=== PATIENT | male | born 1945 | race Caucasian/White ===

== ENCOUNTER 2017-01-13 06:38 | Day surgery (SDC) | payer MEDICARE, OTHER ==
[~2017-01-13 06:38] MED LIST: Sodium Chloride 0.9% 10 ML Syringe FLUSH PRN; Sodium Chloride 0.9% 2.5 ML Syringe FLUSH PRN
[2017-01-13] MEDS ORDERED: Lactated Ringers 1,000 ML IV SCH (07:00)
--- NOTE | 2017-01-13 07:20 | PCM.PREANE ---
Preanesthetic Assessment - Anesthesia/Transfusion/Family Hx Anesthesia History: Prior Anesthesia Without Reaction Other Type of Anesthesia Reaction Comment: DENIES ANY PROBLEMS WITH ANESTHESIA Family History of Anesthesia Reaction: No Transfusion History: No Prior Transfusion(s) - Review of Systems General: No Symptoms Pulmonary: No Symptoms Cardiovascular: No Symptoms Gastrointestinal: No Symptoms Neurological: No Symptoms Other: Reports: None - Physical Assessment NPO Status Date: 01/12/17 O2 Sat by Pulse Oximetry: 97 Respiratory Rate: 16 Vital Signs: Last Vital Signs Temp 36.3 C 01/13/17 06:42 Pulse 62 01/13/17 06:42 Resp 16 01/13/17 06:42 BP 119/62 01/13/17 06:42 Pulse Ox 97 01/13/17 06:42 Height: 1.88 m Weight: 122.47 kg ASA Class: 2 Mental Status: Alert & Oriented x3 Airway Class: Mallampati = 1 Dentition: Reports: Normal Dentition Lungs: Clear to Auscultation, Normal Respiratory Effort Cardiovascular: Regular Rate, Regular Rhythm - Allergies Allergies/Adverse Reactions: Allergies Allergy/AdvReac Type Severity Reaction Status Date / Time No Known Allergies Allergy Verified 07/19/13 08:51 - Anesthesia Plan Pre-Op Medication Ordered: None - Acknowledgements Anesthesia Type Planned: General Anesthesia Pt an Appropriate Candidate for the Planned Anesthesia: Yes Alternatives and Risks of Anesthesia Discussed w Pt/Guardian: Yes Pt/Guardian Understands and Agrees with Anesthesia Plan: Yes Additional Comments: pmh: parox a fib, now in nsr, on dig and cardizem, dm2, hld, gerd. Pt states Shahin is going after stone in lower pole of kidney. Will plan GET. PreAnesthesia Questionnaire HEENT History: Reports: Hard of Hearing, Impaired Vision, Other (See Below) Other HEENT History: wears glasses, barrett hearing aids Cardiovascular History: Reports: Arrhythmia, High Cholesterol Respiratory History: Reports: Sleep Apnea Other Respiratory History: uses CPAP Gastrointestinal History: Reports: GERD Genitourinary History: Reports: Prostate Disorder, Renal Calculus Musculoskeletal History: Reports: Back Pain, Chronic, Fracture Other Musculoskeletal History: hx fx rib and finger Endocrine/Metabolic History: Reports: Diabetes, Type II, Obesity/BMI 30+ Dermatologic History: Reports: Psoriasis - Past Surgical History Head Surgeries/Procedures: Reports: None Male Surgical History: Reports: Lithotripsy (ESWL), TURP-Transurethral Resection of Prostate, Vasectomy Endocrine Surgical History: Reports: Parathyroidectomy - SUBSTANCE USE Smoking Status *Q: Former Smoker Second Hand Smoke Exposure: No Days Per Week of Alcohol Use: 0 Recreational Drug Use History: No - HOME MEDS Home Medications: Home Meds Simvastatin [Zocor] 40 mg PO BEDTIME 07/31/13 [History] Digoxin [Lanoxin] 125 mcg PO DAILY #30 tablet 08/03/13 [Rx] Diltiazem [Cardizem CD] 240 mg PO DAILY 01/10/17 [History] Esomeprazole Magnesium [Nexium] 1 tab PO ASDIRECTED 01/10/17 [History] Glimepiride [Amaryl] 2 mg PO BID 01/10/17 [History] Tamsulosin HCl [Flomax] 0.4 mg PO BEDTIME 01/10/17 [History] metFORMIN HCl [Metformin HCl ER] 500 mg PO DAILY 01/10/17 [History] - CURRENT (IN HOUSE) MEDS Current Meds: Current Medications Lactated Ringer's (Ringers, Lactated) 1,000 mls @ 100 mls/hr IV ASDIRECTED EHSAN Last Admin: 01/13/17 06:49 Dose: 100 mls/hr Sodium Chloride (Saline Flush) 10 ml FLUSH ASDIRECTED PRN PRN Reason: Keep Vein Open Sodium Chloride (Saline Flush) 2.5 ml FLUSH ASDIRECTED PRN PRN Reason: Keep Vein Open
[2017-01-13] MEDS ORDERED: Lidocaine 2% 5 ML SDV ONE (07:36)
[2017-01-13] MEDS ORDERED: Propofol 200 MG/20 ML SDV ONE (07:36)
[2017-01-13] MEDS ORDERED: Iopamidol 408 MG/ML 50 ML SDV ONE (07:36)
[2017-01-13] MEDS ORDERED: fentaNYL 100 MCG/2 ML SDV ONE (07:36)
[2017-01-13] MEDS ORDERED: Midazolam 1 MG/ML 2 ML SDV ONE (07:36)
[2017-01-13] MEDS ORDERED: Rocuronium 10 MG/ML 10 ML Syringe ONE (07:41)
[2017-01-13] MEDS ORDERED: Neostigmine Methylsulfate 1 MG/ML 5 ML Syringe ONE (07:41)
[2017-01-13] MEDS ORDERED: ePHEDrine 50 MG/ML SDV ONE (08:51)
--- NOTE | 2017-01-13 10:01 | OR ---
SURGEON: Matthieu Greer M.D. DATE OF PROCEDURE: 01/13/2017 PREOPERATIVE DIAGNOSIS: Right renal pelvis stone. POSTOPERATIVE DIAGNOSIS: Right renal pelvis stone. OPERATION: ESWL. DESCRIPTION OF OPERATION: The patient was placed on the lithotripsy table. The position of the patient was adjusted, so the stone could be treated, which is now in two parts. The larger one is in the renal pelvis and the smaller one which is about 7 or 8 mm is in the right upper ureter. The ureteral stone was treated and eventually received 2500 shocks. At the end, the stone was fragmented completely and the shadow of the stone essentially disappeared. With that done, the procedure was terminated and the patient after inserting a Baez catheter in his bladder, was moved to recovery room. The patient tolerated the procedure well. PLAN: He will have the other stone treated, the larger one, which is about 1 cm, next time. JOELLE / DOMINIQUE /[id number]
--- NOTE | 2017-01-13 10:07 | PCM.POSTAN ---
POST ANESTHESIA ASSESSMENT - MENTAL STATUS Mental Status: Alert, Oriented - RESPIRATORY Respiratory Status: Respiratory Rate WNL, Airway Patent, O2 Saturation Stable - CARDIOVASCULAR CV Status: Pulse Rate WNL, Blood Pressure Stable - GASTROINTESTINAL GI Status: No Symptoms - PAIN Pain Score: 0 - POST OP HYDRATION Hydration Status: Adequate & Stable
[2017-01-13 11:42] VITALS: BP 114/70
== END 2017-01-13 11:43 | disposition home or self-care (01) ==
LOC: MW.SDS 06:38
PROVIDERS: ATTEND Urology
DX: N20.2 Calculus of kidney with calculus of ureter (principal); E11.9 Type 2 diabetes mellitus without complications; E78.00 Pure hypercholesterolemia, unspecified; K21.9 Gastro-esophageal reflux disease without esophagitis; G47.30 Sleep apnea, unspecified; Z87.442 Personal history of urinary calculi; Z87.891 Personal history of nicotine dependence; Z79.84 Long term (current) use of oral hypoglycemic drugs; Z79.899 Other long term (current) drug therapy; Z98.52 Vasectomy status; Z90.89 Acquired absence of other organs; Z98.890 Other specified postprocedural states; Z99.89 Dependence on other enabling machines and devices
CPT/HCPCS: 50590; J2250; J3010; J7120; 00873; J2704; Q9966

== ENCOUNTER 2017-01-27 07:42 | Day surgery (SDC) | payer MEDICARE, OTHER ==
[~2017-01-27 07:42] MED LIST changes: +Lactated Ringers 1,000 ML IV SCH; +ceFAZolin 2 GM in Premix Bag 1 BAG IV ONE
[2017-01-27] MEDS ORDERED: Succinylcholine/Normal Saline 200 MG/10 ML Syringe ONE (08:29)
[2017-01-27] MEDS ORDERED: Rocuronium 10 MG/ML 10 ML Syringe ONE (08:29)
[2017-01-27] MEDS ORDERED: Lidocaine 2% 5 ML SDV ONE (08:29)
[2017-01-27] MEDS ORDERED: Ondansetron 4 MG/2 ML SDV ONE (08:29)
[2017-01-27] MEDS ORDERED: Midazolam 1 MG/ML 2 ML SDV ONE (08:30)
[2017-01-27] MEDS ORDERED: Propofol 200 MG/20 ML SDV ONE (08:30)
[2017-01-27] MEDS ORDERED: fentaNYL 250 MCG/5 ML SDV ONE (08:30)
--- NOTE | 2017-01-27 08:53 | PCM.PREANE ---
Preanesthetic Assessment - Procedure Proposed Procedure: ESWL - Anesthesia/Transfusion/Family Hx Anesthesia History: Prior Anesthesia Without Reaction Other Type of Anesthesia Reaction Comment: DENIES ANY PROBLEMS WITH ANESTHESIA Family History of Anesthesia Reaction: No Transfusion History: No Prior Transfusion(s) Intubation History: Unknown - Review of Systems General: No Symptoms Pulmonary: No Symptoms Cardiovascular: Other (Arrhythmia - on cardiazem;hypercholesterolemic) Gastrointestinal: Other (GERD) Neurological: Other (Slow bladder emptying) Other: Reports: Diabetes (II; usu fbs 160 range) - Physical Assessment NPO Status Date: 01/27/17 NPO Status Time: 06:00 (took AM meds) Height: 5 ft 7 in Weight: 268 lb ASA Class: 3 Mental Status: Alert & Oriented x3 Airway Class: Mallampati = 1 Dentition: Reports: Normal Dentition Thyro-Mental Finger Breadths: 3 Mouth Opening Finger Breadths: 3 ROM/Head Extension: Full Lungs: Clear to Auscultation, Normal Respiratory Effort Cardiovascular: Regular Rate, Regular Rhythm, No Murmurs - Allergies Allergies/Adverse Reactions: Allergies Allergy/AdvReac Type Severity Reaction Status Date / Time No Known Allergies Allergy Verified 01/25/17 12:25 - Blood Blood Available: No Product(s) Available: None - Anesthesia Plan Pre-Op Medication Ordered: None - Acknowledgements Anesthesia Type Planned: General Anesthesia (OETT) Pt an Appropriate Candidate for the Planned Anesthesia: Yes Alternatives and Risks of Anesthesia Discussed w Pt/Guardian: Yes Pt/Guardian Understands and Agrees with Anesthesia Plan: Yes PreAnesthesia Questionnaire HEENT History: Reports: Hard of Hearing, Impaired Vision, Other (See Below) Other HEENT History: wears glasses, barrett hearing aids Cardiovascular History: Reports: Arrhythmia, High Cholesterol Respiratory History: Reports: Sleep Apnea Other Respiratory History: uses CPAP Gastrointestinal History: Reports: GERD Genitourinary History: Reports: Prostate Disorder, Renal Calculus Musculoskeletal History: Reports: Back Pain, Chronic, Fracture Other Musculoskeletal History: hx fx rib and finger Endocrine/Metabolic History: Reports: Diabetes, Type II, Obesity/BMI 30+ Dermatologic History: Reports: Psoriasis - Past Surgical History Head Surgeries/Procedures: Reports: None Male Surgical History: Reports: Lithotripsy (ESWL), TURP-Transurethral Resection of Prostate, Vasectomy Endocrine Surgical History: Reports: Parathyroidectomy - SUBSTANCE USE Smoking Status *Q: Former Smoker Second Hand Smoke Exposure: No Days Per Week of Alcohol Use: 0 Recreational Drug Use History: No - HOME MEDS Home Medications: Home Meds Simvastatin [Zocor] 40 mg PO BEDTIME 07/31/13 [History] Digoxin [Lanoxin] 125 mcg PO DAILY #30 tablet 08/03/13 [Rx] Diltiazem [Cardizem CD] 240 mg PO DAILY 01/10/17 [History] Esomeprazole Magnesium [Nexium] 1 tab PO ASDIRECTED 01/10/17 [History] Glimepiride [Amaryl] 2 mg PO BID 01/10/17 [History] Tamsulosin HCl [Flomax] 0.4 mg PO BEDTIME 01/10/17 [History] metFORMIN HCl [Metformin HCl ER] 500 mg PO DAILY 01/10/17 [History] - CURRENT (IN HOUSE) MEDS Current Meds: Current Medications Lactated Ringer's (Ringers, Lactated) 1,000 mls @ 100 mls/hr IV ASDIRECTED EHSAN Last Admin: 01/27/17 07:55 Dose: 100 mls/hr Sodium Chloride (Saline Flush) 10 ml FLUSH ASDIRECTED PRN PRN Reason: Keep Vein Open Sodium Chloride (Saline Flush) 2.5 ml FLUSH ASDIRECTED PRN PRN Reason: Keep Vein Open Discontinued Medications Fentanyl (Sublimaze) Confirm Administered Dose 250 mcg .ROUTE .STK-MED ONE Stop: 01/27/17 08:31 Cefazolin Sodium/Dextrose 2 gm (/ Premix) 50 mls @ 100 mls/hr IV ONCALL ONE Stop: 01/27/17 07:29 Lidocaine (Xylocaine-Mpf 2%) Confirm Administered Dose 5 ml .ROUTE .STK-MED ONE Stop: 01/27/17 08:30 Midazolam HCl (Versed 1 Mg/Ml) Confirm Administered Dose 2 mg .ROUTE .STK-MED ONE Stop: 01/27/17 08:31 Ondansetron HCl (Zofran) Confirm Administered Dose 4 mg .ROUTE .STK-MED ONE Stop: 01/27/17 08:30 Propofol (Diprivan 20 Ml) Confirm Administered Dose 200 mg .ROUTE .STK-MED ONE Stop: 01/27/17 08:31 Rocuronium [place] (Zemuron) Confirm Administered Dose 100 mg .ROUTE .STK-MED ONE Stop: 01/27/17 08:30 Succinylcholine Chloride (Succinylcholine In Ns Pf) Confirm Administered Dose 200 mg .ROUTE .STK-MED ONE Stop: 01/27/17 08:30
[2017-01-27] MEDS ORDERED: Iopamidol 408 MG/ML 50 ML SDV ONE (10:09)
--- NOTE | 2017-01-27 12:07 | OR ---
SURGEON: Matthieu Greer M.D. DATE OF PROCEDURE: 01/27/2017 PREOPERATIVE DIAGNOSIS: Right renal pelvis stone residual. POSTOPERATIVE DIAGNOSIS: Right renal pelvis stone residual. OPERATION: Extracorporeal shock wave lithotripsy. DESCRIPTION OF OPERATION: The patient was given general anesthesia on the lithotripsy table. Position of the patient was adjusted, so the stone could be treated and eventually received a total of 3000 shocks. The stone was slightly over 1 cm in greatest dimension. At the end of the treatment, the urine coming from the right kidney is bloody. A 6-Sami 26 cm double-J stent was placed in the right renal unit. Position was confirmed by fluoroscopy. The bladder was emptied. The patient was sent to the recovery room in good condition. PLAN: He comes to the office in four weeks. I will take the double-J stent out then and follow the patient clinically. JOELLE / DOMINIQUE /[id number]
--- NOTE | 2017-01-27 13:02 | PCM48HPAN ---
Post Anesthesia Note - EVALUATION WITHIN 48HRS OF ANESTHETIC Vital Signs in Normal Range: Yes Patient Participated in Evaluation: Yes Respiratory Function Stable: Yes Airway Patent: Yes Cardiovascular Function Stable: Yes Hydration Status Stable: Yes Pain Control Satisfactory: Yes Nausea and Vomiting Control Satisfactory: Yes Mental Status Recovered: Yes - COMMENTS/OBSERVATIONS Free Text/Narrative:: Baez drainage OK but c/o cath too long was raised.
[2017-01-27 14:11] VITALS: BP 96/65
== END 2017-01-27 13:35 | disposition home or self-care (01) ==
LOC: MW.SDS 07:42
PROVIDERS: ATTEND Urology
DX: N20.0 Calculus of kidney (principal); E11.9 Type 2 diabetes mellitus without complications; E78.00 Pure hypercholesterolemia, unspecified; G47.30 Sleep apnea, unspecified; K21.9 Gastro-esophageal reflux disease without esophagitis; N42.9 Disorder of prostate, unspecified; E66.9 Obesity, unspecified; Z87.442 Personal history of urinary calculi; Z87.891 Personal history of nicotine dependence; Z79.84 Long term (current) use of oral hypoglycemic drugs; Z79.899 Other long term (current) drug therapy; Z68.35 Body mass index [BMI] 35.0-35.9, adult; Z99.89 Dependence on other enabling machines and devices; Z90.79 Acquired absence of other genital organ(s); Z90.89 Acquired absence of other organs; Z98.890 Other specified postprocedural states
CPT/HCPCS: 50590; 52332; J2250; J2405; J3010; J7120; 00873; 88300; C1769; C2625; J2704; Q9966

== ENCOUNTER 2017-03-04 11:57 | Inpatient (IN) | payer MEDICARE, OTHER ==
[2017-03-04] MEDS ORDERED: Sodium Chloride 0.9% 10 ML Syringe FLUSH PRN (12:35)
[2017-03-04] MEDS ORDERED: Sodium Chloride 0.9% 2.5 ML Syringe FLUSH PRN (12:35)
[2017-03-04] MEDS: Lactated Ringers 1,000 ML IV SCH ×2 (13:03→17:11)
--- NOTE | 2017-03-04 13:10 | PCM.PREANE ---
Preanesthetic Assessment - Anesthesia/Transfusion/Family Hx Anesthesia History: Prior Anesthesia Without Reaction Other Type of Anesthesia Reaction Comment: DENIES ANY PROBLEMS WITH ANESTHESIA Family History of Anesthesia Reaction: No Transfusion History: No Prior Transfusion(s) Intubation History: Unknown - Review of Systems General: Fever, Weakness, Fatigue, Malaise, Chills Gastrointestinal: Abdominal Pain Other: Reports: Easy Bleeding (lovenox sc this am) - Physical Assessment NPO Status Date: 03/04/17 NPO Status Time: 09:30 O2 Sat by Pulse Oximetry: 99 Respiratory Rate: 20 Blood Pressure: 107/59 Vital Signs: Last Vital Signs Temp 36.2 C 03/04/17 12:21 Pulse 79 03/04/17 12:21 Resp 20 03/04/17 12:21 BP 107/59 L 03/04/17 12:21 Pulse Ox 99 03/04/17 12:21 Height: 1.88 m Weight: 115.8 kg ASA Class: 4E Mental Status: Alert & Oriented x3 Airway Class: Mallampati = 2 Dentition: Reports: Normal Dentition ROM/Head Extension: Full Lungs: Clear to Auscultation, Normal Respiratory Effort Cardiovascular: Regular Rate, Regular Rhythm - Allergies Allergies/Adverse Reactions: Allergies Allergy/AdvReac Type Severity Reaction Status Date / Time No Known Allergies Allergy Verified 03/04/17 12:26 - Acknowledgements Anesthesia Type Planned: General Anesthesia Pt an Appropriate Candidate for the Planned Anesthesia: Yes Alternatives and Risks of Anesthesia Discussed w Pt/Guardian: Yes Pt/Guardian Understands and Agrees with Anesthesia Plan: Yes Additional Comments: transfer from outside hosp. Inpt since last night. transfered for obstructing L ureteral stone and UTI / pyelonephritis / sepsis. Arrives diaphoretic with chills. Hepllocked iv, has had 1 dose prcephrin. last oral doses of digitalis and cardizem were at 818 this am. WBC 12,500 at outside hospital K=3.9 Ate breakfast at 0930. No H&P on chart. PLAN: pre op iv hydration and antibiotics. To OR for cysto stent placement under [place] (RSI) PreAnesthesia Questionnaire HEENT History: Reports: Hard of Hearing, Impaired Vision, Other (See Below) Other HEENT History: wears glasses, barrett hearing aids Cardiovascular History: Reports: Arrhythmia, High Cholesterol Respiratory History: Reports: Sleep Apnea Other Respiratory History: uses CPAP Gastrointestinal History: Reports: GERD Genitourinary History: Reports: Prostate Disorder, Renal Calculus Musculoskeletal History: Reports: Back Pain, Chronic, Fracture Other Musculoskeletal History: hx fx rib and finger Endocrine/Metabolic History: Reports: Diabetes, Type II, Obesity/BMI 30+ Dermatologic History: Reports: Psoriasis - Infectious Disease History Infectious Disease History: Reports: Measles - Past Surgical History Head Surgeries/Procedures: Reports: None Male Surgical History: Reports: Lithotripsy (ESWL), TURP-Transurethral Resection of Prostate, Vasectomy Endocrine Surgical History: Reports: Parathyroidectomy - SUBSTANCE USE Smoking Status *Q: Never Smoker Second Hand Smoke Exposure: No Days Per Week of Alcohol Use: 0 Recreational Drug Use History: No - HOME MEDS Home Medications: Home Meds Simvastatin [Zocor] 40 mg PO BEDTIME 07/31/13 [History] Digoxin [Lanoxin] 125 mcg PO DAILY #30 tablet 08/03/13 [Rx] Diltiazem [Cardizem CD] 240 mg PO DAILY 01/10/17 [History] Esomeprazole Magnesium [Nexium] 1 tab PO ASDIRECTED 01/10/17 [History] Glimepiride [Amaryl] 2 mg PO BID 01/10/17 [History] Tamsulosin HCl [Flomax] 0.4 mg PO BEDTIME 01/10/17 [History] metFORMIN HCl [Metformin HCl ER] 500 mg PO DAILY 01/10/17 [History] Furosemide [Lasix] 20 mg PO DAILY #10 tablet 01/27/17 [Rx] - CURRENT (IN HOUSE) MEDS Current Meds: Current Medications Tobramycin 120 mg/ Sodium (Chloride) 103 mls @ 103 mls/hr IV NOW STA Stop: 03/04/17 13:41 Last Admin: 03/04/17 13:03 Dose: 103 mls/hr Lactated Ringer's (Ringers, Lactated) 1,000 mls @ 150 mls/hr IV ASD[facility]RECTED [facility] Last Admin: 03/04/17 13:03 Dose: 150 mls/hr Sodium Chloride (Saline Flush) 10 ml FLUSH ASDIRECTED PRN PRN Reason: Keep Vein Open Sodium Chloride (Saline Flush) 2.5 ml FLUSH ASDIRECTED PRN PRN Reason: Keep Vein Open
[2017-03-04] MEDS ORDERED: Midazolam 1 MG/ML 2 ML SDV ONE (13:25)
[2017-03-04] MEDS ORDERED: Propofol 200 MG/20 ML SDV ONE (13:25)
[2017-03-04] MEDS ORDERED: fentaNYL 100 MCG/2 ML SDV ONE (13:25)
[2017-03-04] MEDS ORDERED: Lidocaine 2% 5 ML SDV ONE (13:27)
[2017-03-04] MEDS ORDERED: Succinylcholine/Normal Saline 200 MG/10 ML Syringe ONE (13:27)
[2017-03-04] MEDS ORDERED: Ondansetron 4 MG/2 ML SDV ONE (13:27)
[2017-03-04] MEDS ORDERED: diphenhydrAMINE 50 MG/ML SDV ONE (13:27)
[2017-03-04] MEDS ORDERED: ePHEDrine 50 MG/ML SDV ONE (13:49)
[2017-03-04] MEDS ORDERED: D5 1/2 NS w/ 20 mEq/L KCl 1,000 ML IV SCH (14:30)
--- NOTE | 2017-03-04 14:58 | PCM.POSTAN ---
POST ANESTHESIA ASSESSMENT - MENTAL STATUS Mental Status: Alert, Oriented - VITAL SIGNS Pulse Rate: 67 SaO2: 95 Resp Rate: 20 Blood Pressure: 109/52 - RESPIRATORY Respiratory Status: Respiratory Rate WNL, Airway Patent, O2 Saturation Stable ( sore throat) - CARDIOVASCULAR CV Status: Pulse Rate WNL, Blood Pressure Stable - GASTROINTESTINAL GI Status: No Symptoms - PAIN Pain Score: 0 - POST OP HYDRATION Hydration Status: Adequate & Stable
[2017-03-04] MEDS ORDERED: FLU Vacc QS 2017-18 (36mos UP)/PF 60 MCG/0.5 ML Syringe IM ONE (15:45)
--- NOTE | 2017-03-04 15:52 | CR ---
EXAMINATION: Ureteroscopy HISTORY: Stent placement COMPARISON: None TECHNIQUE: 2 fluoroscopic images provided FINDINGS/IMPRESSION: Operative control films demonstrate selection of the left ureter with subsequent stent placement.
[2017-03-04] MEDS: Ampicillin 2 GM in Sodium Chloride 0.9% 100 ML IV SCH ×2 (16:00→20:22)
--- NOTE | 2017-03-04 18:03 | OR ---
SURGEON: Matthieu Greer M.D. DATE OF PROCEDURE: 03/04/2017 PREOPERATIVE DIAGNOSES: 1. Obstructive left upper ureteral stone, 8 mm. 2. Urinary tract infection with positive culture. POSTOPERATIVE DIAGNOSES: 1. Obstructive left upper ureteral stone, 8 mm. 2. Urinary tract infection with positive culture. PROCEDURE: Cystoscopy and double-J stent placement. DESCRIPTION OF PROCEDURE: The patient was given general anesthesia, placed in dorsal lithotomy position, and prepped and draped in a sterile drapes. Cystourethroscopy was done. The existing double-J stent on the right side which has been there for approximately one month status post ESWL on the right side was now removed. A Glidewire was advanced in the left ureter alongside the stone all the way up into the renal pelvis, over which a 6-Bulgarian 26 cm double-J stent was placed. The stent retracted into the lower ureter when the guidewire was removed. There was good hydronephrotic drip coming out of that ureter. With that done, the bladder was emptied and the patient was moved to recovery room in good condition. PLAN: He will be admitted for the next 2 days for IV antibiotics. We will then have to set up ESWL treatment for him. PRIMARY SURGEON: SECONDARY SURGEON: MUSEUM LIBRARIAN: REASON MUSEUM LIBRARIAN WAS NECESSARY: ROLE OF MUSEUM LIBRARIAN: JOELLE / DOMINIQUE /[id number]
[2017-03-04] MEDS: Acetaminophen 325 MG Tab PO PRN (21:22)
--- NOTE | 2017-03-04 22:15 | CONS ---
DATE OF CONSULTATION: DATE OF : 1945 PRIMARY CARE PHYSICIAN: Matthieu Greer M.D. HISTORY OF PRESENT ILLNESS: A 71 years old, I received a call about him from the [facility]. He apparently has been to the emergency room 3 or 4 times over the last 30 days with recurrent left flank pain. He was also found to have a UTI with positive culture that grew Morganella. He had a CT scan done today that showed an 8 mm left upper ureteral stone with obstruction. PHYSICAL EXAMINATION: VITAL SIGNS: On arrival, he is afebrile even though his temperature there during the last 24 hours reached up to 102. His vital signs are normal. GENERAL: He is alert and oriented. HEART: Normal sinus rhythm. LUNGS: Clear. ABDOMEN: Negative. EXTERNAL GENITALIA: Normal. DIAGNOSES: Urinary tract infection, left upper ureteral obstructive stone 8 mm. PLAN: Left cystoscopy and left double-J stent placement plus IV antibiotics. JOELLE / DOMINIQUE /[id number]
[2017-03-05] MEDS: Lactated Ringers 1,000 ML IV SCH ×3 (01:05→19:23)
[2017-03-05] MEDS: Ampicillin 2 GM in Sodium Chloride 0.9% 100 ML IV SCH ×4 (03:14→21:03)
[2017-03-05 06:31] LABS: CHLORIDE,CL 104 mmol/L (98-110); SODIUM,NA 130 mmol/L (136-146)
[2017-03-05] MEDS: metFORMIN 500 MG Tab.ER PO SCH (12:10)
[2017-03-05] MEDS: Acetaminophen 325 MG Tab PO PRN ×2 (12:10→19:25)
[2017-03-05] MEDS: Fluconazole 100 MG Tab PO SCH (12:10)
[2017-03-05] MEDS: Docusate Sodium 100 MG Cap PO SCH (12:10)
[2017-03-05] MEDS ORDERED: Docusate Sodium 100 MG Cap PO PRN (21:00)
[2017-03-05] MEDS ORDERED: Insulin Aspart 100 Units/ML 3 ML Pen SUBCUT SCH (21:00)
[2017-03-05] MEDS ORDERED: Docusate Sodium 100 MG Cap PO SCH (21:00)
[2017-03-05] MEDS: Insulin Aspart 100 Units/ML 3 ML Pen SUBCUT SCH (21:05)
[2017-03-06] MEDS: Ampicillin 2 GM in Sodium Chloride 0.9% 100 ML IV SCH ×4 (03:02→21:24)
[2017-03-06] MEDS: Acetaminophen 325 MG Tab PO PRN (03:58)
[2017-03-06] MEDS: Lactated Ringers 1,000 ML IV SCH ×2 (04:26→10:52)
[2017-03-06] MEDS: Insulin Aspart 100 Units/ML 3 ML Pen SUBCUT SCH ×4 (08:34→21:05)
[2017-03-06] MEDS: Docusate Sodium 100 MG Cap PO SCH ×2 (09:28→21:05)
[2017-03-06] MEDS: metFORMIN 500 MG Tab.ER PO SCH (09:28)
[2017-03-06] MEDS: Fluconazole 100 MG Tab PO SCH (09:28)
--- NOTE | 2017-03-06 10:49 | PCM48HPAN ---
Post Anesthesia Note - EVALUATION WITHIN 48HRS OF ANESTHETIC Vital Signs in Normal Range: Yes Patient Participated in Evaluation: Yes Respiratory Function Stable: Yes Airway Patent: Yes Cardiovascular Function Stable: Yes Hydration Status Stable: Yes Pain Control Satisfactory: Yes Nausea and Vomiting Control Satisfactory: Yes Mental Status Recovered: Yes
--- NOTE | 2017-03-06 11:54 | PCM.SURGPN ---
- General Info Date of Service: 03/06/17 Date of Surgery/Procedure: 03/04/17 Functional Status: Reports: Pain Controlled - Review of Systems General: Reports: Night Sweats HEENT: Reports: No Symptoms Pulmonary: Reports: No Symptoms Cardiovascular: Reports: No Symptoms Gastrointestinal: Reports: No Symptoms Genitourinary: Reports: No Symptoms Musculoskeletal: Reports: No Symptoms Skin: Reports: No Symptoms Neurological: Reports: No Symptoms Psychiatric: Reports: No Symptoms - Patient Data Vitals - Most Recent: Last Vital Signs Temp 97.7 F 03/06/17 08:22 Pulse 65 03/06/17 08:22 Resp 20 03/06/17 08:22 BP 122/76 03/06/17 08:22 Pulse Ox 97 03/06/17 08:22 Weight - Most Recent: 255 lb 4.725 oz I&O - Last 24 Hours: Intake & Output 03/05/17 03/06/17 03/06/17 19:59 03:59 11:59 Intake Total 3704 1574 100 Output Total 1765 Balance 1939 1574 100 Lab Results Last 24 Hrs: Laboratory Results - last 24 hr 03/05/17 03/05/17 03/05/17 Range/Units 13:48 15:57 20:49 POC Glucose 248 H 232 H 188 H (60-110) mg/dL 03/06/17 03/06/17 Range/Units 06:08 11:07 POC Glucose 196 H 226 H (60-110) mg/dL Med Orders - Current: Current Medications Acetaminophen (Tylenol) 650 mg PO Q2H PRN PRN Reason: Fever Last Admin: 03/06/17 03:58 Dose: 650 mg Docusate Sodium (Colace) 100 mg PO BID [facility] Last Admin: 03/06/17 09:28 Dose: 100 mg Fluconazole (Diflucan) 100 mg PO DAILY [facility] Last Admin: 03/06/17 09:28 Dose: 100 mg Ampicillin Sodium 2 gm/ Sodium (Chloride) 100 mls @ 200 mls/hr IV Q6H [facility] Last Admin: 03/06/17 09:24 Dose: 200 mls/hr Tobramycin 120 mg/ Sodium (Chloride) 103 mls @ 103 mls/hr IV Q12H [facility] Last Admin: 03/06/17 00:42 Dose: 103 mls/hr Insulin Aspart (Novolog) 0 unit SUBCUT ACBED [facility] PRN Reason: Protocol Last Admin: 03/06/17 08:34 Dose: 2 units Metformin HCl (Glucophage Xr) 500 mg PO DAILY [facility] Last Admin: 03/06/17 09:28 Dose: 500 mg Sodium Chloride (Saline Flush) 10 ml FLUSH ASDIRECTED PRN PRN Reason: Keep Vein Open Sodium Chloride (Saline Flush) 2.5 ml FLUSH ASDIRECTED PRN PRN Reason: Keep Vein Open Discontinued Medications Diphenhydramine HCl (Benadryl) Confirm Administered Dose 50 mg .ROUTE .STK-MED ONE Stop: 03/04/17 13:28 Docusate Sodium (Colace) 100 mg PO BID PRN PRN Reason: Constipation Docusate Sodium (Colace) 100 mg PO BID [facility] Ephedrine Sulfate (Ephedrine Sulfate) Confirm Administered Dose 50 mg .ROUTE .STK-MED ONE Stop: 03/04/17 13:50 Fentanyl (Sublimaze) Confirm Administered Dose 100 mcg .ROUTE .STK-MED ONE Stop: 03/04/17 13:26 Tobramycin 120 mg/ Sodium (Chloride) 103 mls @ 103 mls/hr IV NOW STA Stop: 03/04/17 13:41 Last Admin: 03/04/17 13:03 Dose: 103 mls/hr Lactated Ringer's (Ringers, Lactated) 1,000 mls @ 150 mls/hr IV ASDIRECTED [facility] Last Admin: 03/06/17 10:52 Dose: 150 mls/hr Potassium Chloride/Dextrose/Sod Cl (D5 1/2 Ns W/ 20 Meq/L Kcl) 1,000 mls @ 150 mls/hr IV ASDIRECTED [facility] Last Admin: 03/04/17 15:35 Dose: 150 mls/hr Tobramycin 120 mg/ Sodium (Chloride) 103 mls @ 103 mls/hr IV Q12H [facility] Last Admin: 03/04/17 16:34 Dose: Not Given Influenza Virus Vaccine (Pharmacy To Dose - Influenza Vaccine) 1 each IM ONETIME ONE Stop: 03/04/17 15:31 Last Admin: 03/04/17 18:59 Dose: Not Given Influenza Virus Vaccine (Fluarix Quad [id number]) 60 mcg IM .ONCE ONE Stop: 03/04/17 15:46 Last Admin: 03/04/17 18:54 Dose: 60 mcg Lidocaine (Xylocaine-Mpf 2%) Confirm Administered Dose 5 ml .ROUTE .STK-MED ONE Stop: 03/04/17 13:28 Midazolam HCl (Versed 1 Mg/Ml) Confirm Administered Dose 2 mg .ROUTE .STK-MED ONE Stop: 03/04/17 13:26 Ondansetron HCl (Zofran) Confirm Administered Dose 4 mg .ROUTE .STK-MED ONE Stop: 03/04/17 13:28 Propofol (Diprivan 20 Ml) Confirm Administered Dose 200 mg .ROUTE .STK-MED ONE Stop: 03/04/17 13:26 Succinylcholine Chloride (Succinylcholine In Ns Pf) Confirm Administered Dose 200 mg .ROUTE .STK-MED ONE Stop: 03/04/17 13:28 - Exam General: Alert, Oriented HEENT: Pupils Equal, Pupils Reactive Neck: Supple Lungs: Clear to Auscultation Cardiovascular: Regular Rate GI/Abdominal Exam: Normal Bowel Sounds Extremities: Normal Inspection Skin: Warm, Dry, Intact Neurological: No New Focal Deficit Psy/Mental Status: Alert - Problem List & Annotations (1) UTI (urinary tract infection) SNOMED Code(s): 14021215 Code(s): N39.0 - URINARY TRACT INFECTION, SITE NOT SPECIFIED Status: Acute Qualifiers: Urinary tract infection type: acute pyelonephritis Qualified Code(s): N10 - Acute pyelonephritis - Problem List Review Problem List Initiated/Reviewed/Updated: Yes - My Orders Last 24 Hours: Active Orders 24 hr Category Date Time Status Docusate Sodium [Colace] Med 03/05/17 12:02 Active 100 mg PO BID Fluconazole [Diflucan] Med 03/05/17 11:45 Active 100 mg PO DAILY Insulin Aspart [NovoLOG] Med 03/05/17 21:00 Active See Protocol SUBCUT ACBED metFORMIN [Glucophage XR] Med 03/05/17 11:45 Active 500 mg PO DAILY Medication Orders Acetaminophen (Tylenol) 650 mg PO Q2H PRN PRN Reason: Fever Last Admin: 03/06/17 03:58 Dose: 650 mg Admin: 03/05/17 19:25 Dose: 650 mg Admin: 03/05/17 12:10 Dose: 650 mg Admin: 03/04/17 21:22 Dose: 650 mg Docusate Sodium (Colace) 100 mg PO BID [facility] Last Admin: 03/06/17 09:28 Dose: 100 mg Admin: 03/05/17 12:10 Dose: 100 mg Fluconazole (Diflucan) 100 mg PO DAILY [facility] Last Admin: 03/06/17 09:28 Dose: 100 mg Admin: 03/05/17 12:10 Dose: 100 mg Ampicillin Sodium 2 gm/ Sodium (Chloride) 100 mls @ 200 mls/hr IV Q6H [facility] Last Admin: 03/06/17 09:24 Dose: 200 mls/hr Infusion: 03/06/17 03:32 Dose: 200 mls/hr Admin: 03/06/17 03:02 Dose: 200 mls/hr Infusion: 03/05/17 21:33 Dose: 200 mls/hr Admin: 03/05/17 21:03 Dose: 200 mls/hr Infusion: 03/05/17 14:41 Dose: 200 mls/hr Admin: 03/05/17 14:11 Dose: 200 mls/hr Infusion: 03/05/17 10:12 Dose: 200 mls/hr Admin: 03/05/17 09:42 Dose: 200 mls/hr Infusion: 03/05/17 03:44 Dose: 200 mls/hr Admin: 03/05/17 03:14 Dose: 200 mls/hr Infusion: 03/04/17 20:52 Dose: 200 mls/hr Admin: 03/04/17 20:22 Dose: 200 mls/hr Infusion: 03/04/17 16:30 Dose: 200 mls/hr Admin: 03/04/17 16:00 Dose: 200 mls/hr Tobramycin 120 mg/ Sodium (Chloride) 103 mls @ 103 mls/hr IV Q12H [facility] Last Admin: 03/06/17 00:42 Dose: 103 mls/hr Infusion: 03/05/17 13:13 Dose: 103 mls/hr Admin: 03/05/17 12:13 Dose: 103 mls/hr Infusion: 03/05/17 02:02 Dose: 103 mls/hr Admin: 03/05/17 01:02 Dose: 103 mls/hr Insulin Aspart (Novolog) 0 unit SUBCUT ACBED [facility] PRN Reason: Protocol Last Admin: 03/06/17 08:34 Dose: 2 units Admin: 03/05/17 21:05 Dose: 2 units Metformin HCl (Glucophage Xr) 500 mg PO DAILY [facility] Last Admin: 03/06/17 09:28 Dose: 500 mg Admin: 03/05/17 12:10 Dose: 500 mg Sodium Chloride (Saline Flush) 10 ml FLUSH ASDIRECTED PRN PRN Reason: Keep Vein Open Sodium Chloride (Saline Flush) 2.5 ml FLUSH ASDIRECTED PRN PRN Reason: Keep Vein Open - Plan Plan (Free Text/Narrative):: one more day of IV antibiotics U/C today
[2017-03-07] MEDS: Ampicillin 2 GM in Sodium Chloride 0.9% 100 ML IV SCH ×2 (02:23→08:48)
[2017-03-07] MEDS: Acetaminophen 325 MG Tab PO PRN (07:11)
[2017-03-07] MEDS: Insulin Aspart 100 Units/ML 3 ML Pen SUBCUT SCH ×4 (07:34→21:37)
[2017-03-07] MEDS: Docusate Sodium 100 MG Cap PO SCH ×2 (08:47→21:36)
[2017-03-07] MEDS: Fluconazole 100 MG Tab PO SCH (08:47)
[2017-03-07] MEDS: metFORMIN 500 MG Tab.ER PO SCH (08:47)
[2017-03-07] MEDS ORDERED: AMIKACIN 1000 MG/4 ML IV SCH (10:15)
[2017-03-08] MEDS: Insulin Aspart 100 Units/ML 3 ML Pen SUBCUT SCH ×2 (08:11→12:22)
[2017-03-08] MEDS: Acetaminophen 325 MG Tab PO PRN ×2 (08:15→11:02)
[2017-03-08] MEDS: Docusate Sodium 100 MG Cap PO SCH (08:15)
[2017-03-08] MEDS: Fluconazole 100 MG Tab PO SCH (08:16)
[2017-03-08] MEDS: metFORMIN 500 MG Tab.ER PO SCH (08:16)
[2017-03-08 12:53] VITALS: BP 115/76
--- NOTE | 2017-03-09 02:33 | DISCH ---
DATE OF DISCHARGE: 03/08/2017 PRIMARY CARE PHYSICIAN: Matthieu Greer M.D. HOSPITAL COURSE: 71 years old. He was admitted to the hospital four days ago. He presented to the emergency room with about a month history of flank pain, was treated elsewhere, and also UTI. He had a CT scan that showed an 8 mm left previous stone with obstruction. He was almost septic. He was admitted to the hospital and was started on a combination of ampicillin and tobramycin and was taken to the operating room about an hour after arrival to the hospital where I did a cystoscopy and put a double-J stent in. He remained on IV antibiotics. His temperature subsided two days later. He remained afebrile following that. He is feeling much better at four days and he is sent home on Macrobid 100 mg twice a day for the next 5 days. He is scheduled for ESWL this coming , day after tomorrow. JOELLE / DOMINIQUE /[id number]
== END 2017-03-08 15:10 | disposition home or self-care (01) | DRG 694 ==
LOC: MW.ED 11:57 → MW.MS 12:57 → OBSVTOIN 03-07 10:14 → MW.MS 03-07 15:54
PROVIDERS: ADMIT Urology; ATTEND Urology
PROC: 0T778DZ Dilation of Left Ureter with Intraluminal Device, Via Natural or Artificial Opening Endoscopic (ICD-10-PCS; principal; 2017-03-04)
PROC: 0TP97DZ Removal of Intraluminal Device from Ureter, Via Natural or Artificial Opening (ICD-10-PCS; 2017-03-04)
PROC: 0T768DZ Dilation of Right Ureter with Intraluminal Device, Via Natural or Artificial Opening Endoscopic (ICD-10-PCS; 2017-03-04)
PROC: 3E0234Z Introduction of Serum, Toxoid and Vaccine into Muscle, Percutaneous Approach (ICD-10-PCS; 2017-03-08)
DX: N20.2 Calculus of kidney with calculus of ureter (principal); R10.9 Unspecified abdominal pain; N20.1 Calculus of ureter; N39.0 Urinary tract infection, site not specified; B96.89 Other specified bacterial agents as the cause of diseases classified elsewhere; E11.9 Type 2 diabetes mellitus without complications; I49.9 Cardiac arrhythmia, unspecified; G47.33 Obstructive sleep apnea (adult) (pediatric); K21.9 Gastro-esophageal reflux disease without esophagitis; E78.5 Hyperlipidemia, unspecified; Z23 Encounter for immunization
CPT/HCPCS: 36415 ×2; 52332; 76000; 80048; 82962 ×11; 85025 ×2; 87086; 96365; 99284; A9270 ×15; C1769 ×2; C2625; G0008; J0290 ×12; J1200; J1815; J2250; J2405; J3010; J3260 ×6; J3480; J7030 ×18; J7120 ×7; 00910; 90686; J0278; J0713; J2704; J7060

== ENCOUNTER 2017-03-10 10:48 | Day surgery (SDC) | payer MEDICARE, OTHER ==
[~2017-03-10 10:48] MED LIST changes: +Iopamidol 408 MG/ML 50 ML SDV ONE
--- NOTE | 2017-03-10 11:45 | PCM.PREANE ---
Preanesthetic Assessment - Procedure Proposed Procedure: ESWL - Anesthesia/Transfusion/Family Hx Anesthesia History: Prior Anesthesia Without Reaction Other Type of Anesthesia Reaction Comment: DENIES ANY PROBLEMS WITH ANESTHESIA Family History of Anesthesia Reaction: No Transfusion History: No Prior Transfusion(s) Intubation History: Unknown - Review of Systems General: Other (pain due to renal stone) Pulmonary: Other (sleep apnea) Cardiovascular: Other (a fib - controlled; hypercholesterolemic; on digoxin and diltiazam) Gastrointestinal: Other (GERD) Neurological: No Symptoms Other: Reports: Diabetes (on metformin and gliburide) - Physical Assessment NPO Status Date: 03/09/17 NPO Status Time: 23:00 Height: 6 ft 2 in Weight: 250 lb ASA Class: 3 Mental Status: Alert & Oriented x3 Airway Class: Mallampati = 1 Dentition: Reports: Normal Dentition Thyro-Mental Finger Breadths: 3 Mouth Opening Finger Breadths: 3 ROM/Head Extension: Limited/Partial Lungs: Clear to Auscultation, Normal Respiratory Effort Cardiovascular: Regular Rate, Regular Rhythm, No Murmurs - Allergies Allergies/Adverse Reactions: Allergies Allergy/AdvReac Type Severity Reaction Status Date / Time No Known Allergies Allergy Verified 03/09/17 12:43 - Blood Blood Available: No Product(s) Available: None - Acknowledgements Anesthesia Type Planned: General Anesthesia Pt an Appropriate Candidate for the Planned Anesthesia: Yes Alternatives and Risks of Anesthesia Discussed w Pt/Guardian: Yes Pt/Guardian Understands and Agrees with Anesthesia Plan: Yes PreAnesthesia Questionnaire HEENT History: Reports: Hard of Hearing Other HEENT History: wears glasses, has bilateral hearing aides Cardiovascular History: Reports: Afib, High Cholesterol Other Cardiovascular History: A-Fib has been controlled for several years Respiratory History: Reports: Sleep Apnea Other Respiratory History: uses CPAP Gastrointestinal History: Reports: GERD Genitourinary History: Reports: Renal Calculus Musculoskeletal History: Reports: Fracture Other Musculoskeletal History: hx of fx ribs Endocrine/Metabolic History: Reports: Obesity/BMI 30+ Dermatologic History: Reports: Psoriasis - Infectious Disease History Infectious Disease History: Reports: Measles - Past Surgical History Male Surgical History: Reports: Lithotripsy (ESWL), Renal Calculus, TURP- Transurethral Resection of Prostate, Vasectomy Other Male Surgeries/Procedures: recent Cystoscopy with removal of right ureteral stent and insertion of left uretersl stent Endocrine Surgical History: Reports: Other (See Below) Other Endocrine Surgeries/Procedures: parathyroid nodule removed - SUBSTANCE USE Smoking Status *Q: Former Smoker Second Hand Smoke Exposure: No Days Per Week of Alcohol Use: 0 Recreational Drug Use History: No - HOME MEDS Home Medications: Home Meds Simvastatin [Zocor] 40 mg PO BEDTIME 07/31/13 [History] Digoxin [Lanoxin] 125 mcg PO DAILY #30 tablet 08/03/13 [Rx] Diltiazem [Cardizem CD] 240 mg PO DAILY 01/10/17 [History] Esomeprazole Magnesium [Nexium] 20 mg PO ASDIRECTED 01/10/17 [History] Glimepiride [Amaryl] 2 mg PO BID 01/10/17 [History] metFORMIN HCl [Metformin HCl ER] 500 mg PO DAILY 01/10/17 [History] Nitrofurantoin Macrocrystal [Macrodantin] 100 mg PO BID 03/09/17 [History] - CURRENT (IN HOUSE) MEDS Current Meds: Current Medications Lactated Ringer's (Ringers, Lactated) 1,000 mls @ 100 mls/hr IV ASDIRECTED [facility] Sodium Chloride (Saline Flush) 10 ml FLUSH ASDIRECTED PRN PRN Reason: Keep Vein Open Sodium Chloride (Saline Flush) 2.5 ml FLUSH ASDIRECTED PRN PRN Reason: Keep Vein Open Discontinued Medications Cefazolin Sodium/Dextrose 2 gm (/ Premix) 50 mls @ 100 mls/hr IV ONCALL ONE Stop: 03/10/17 07:29 Iopamidol (Isovue-200 (41%)) Confirm Administered Dose 50 ml .ROUTE .STK-MED ONE Stop: 03/10/17 07:42
[2017-03-10] MEDS ORDERED: Lidocaine 2% 5 ML SDV ONE (12:34)
[2017-03-10] MEDS ORDERED: fentaNYL 100 MCG/2 ML SDV ONE (12:35)
[2017-03-10] MEDS ORDERED: Midazolam 1 MG/ML 2 ML SDV ONE (12:35)
[2017-03-10] MEDS ORDERED: Propofol 200 MG/20 ML SDV ONE (12:35)
[2017-03-10] MEDS ORDERED: Ketorolac 30 MG/ML SDV ONE (12:36)
[2017-03-10] MEDS ORDERED: Ondansetron 4 MG/2 ML SDV ONE (12:36)
[2017-03-10] MEDS ORDERED: Neostigmine Methylsulfate 1 MG/ML 5 ML Syringe ONE (12:36)
[2017-03-10] MEDS ORDERED: Rocuronium 10 MG/ML 10 ML Syringe ONE (12:36)
[2017-03-10] MEDS ORDERED: ePHEDrine 50 MG/ML SDV ONE (13:49)
[2017-03-10] MEDS ORDERED: fentaNYL 100 MCG/2 ML SDV IVPUSH PRN (14:22)
--- NOTE | 2017-03-10 14:32 | PCM.POSTAN ---
POST ANESTHESIA ASSESSMENT - MENTAL STATUS Mental Status: Alert (Seems in good condition to proceed to phase II.), Oriented - RESPIRATORY Respiratory Status: Respiratory Rate WNL, Airway Patent, O2 Saturation Stable - CARDIOVASCULAR CV Status: Pulse Rate WNL, Blood Pressure Stable - GASTROINTESTINAL GI Status: No Symptoms - POST OP HYDRATION Hydration Status: Adequate & Stable
[2017-03-10 15:39] VITALS: BP 97/66
--- NOTE | 2017-03-10 18:34 | OR ---
SURGEON: Matthieu Greer M.D. DATE OF PROCEDURE: 03/10/2017 PREOPERATIVE DIAGNOSIS: Left upper ureteral stone. POSTOPERATIVE DIAGNOSIS: Left upper ureteral stone. PROCEDURE: ESWL. INDICATIONS: This is a 71-year-old. He was seen in the office with fever, UTI, and urinary sepsis with an obstructive left upper ureteral stone. He was taken to the operating room where he had cystoscopy and double-J stent placement and was admitted to the hospital for IV antibiotics, which he received for a total of 4 days. At the end, the urine culture was negative. He was sent home. He was brought back today for ESWL in an effort to break up the stone and remove the stent. DESCRIPTION OF PROCEDURE: The patient was given general anesthesia, placed on the lithotripsy table. The position of the patient was adjusted so the stone could be identified and treated and received a total of 2400 shocks. At the end of the treatment, the stone might have broken up, but that was not adequate and was not enough to risk taking the stent out, so the stent was left in. He will have to come back next week for left ureteroscopy and laser lithotripsy. JOELLE / DOMINIQUE /[id number]
== END 2017-03-10 15:45 | disposition home or self-care (01) ==
LOC: MW.SDS 10:48
PROVIDERS: ATTEND Urology
DX: N20.1 Calculus of ureter (principal); I48.91 Unspecified atrial fibrillation; E78.00 Pure hypercholesterolemia, unspecified; K21.9 Gastro-esophageal reflux disease without esophagitis; E11.9 Type 2 diabetes mellitus without complications; E66.9 Obesity, unspecified; G47.30 Sleep apnea, unspecified; L40.9 Psoriasis, unspecified; Z79.84 Long term (current) use of oral hypoglycemic drugs; Z68.30 Body mass index [BMI] 30.0-30.9, adult; Z98.52 Vasectomy status; Z90.79 Acquired absence of other genital organ(s); Z87.891 Personal history of nicotine dependence; Z79.899 Other long term (current) drug therapy
CPT/HCPCS: 50590; 82962; J1885; J2250; J2405; J3010; J7120; Q9966; 00873; J2704

== ENCOUNTER 2017-03-15 06:23 | Day surgery (SDC) | payer MEDICARE, OTHER ==
[2017-03-15] MEDS ORDERED: Sodium Chloride 0.9% 2.5 ML Syringe FLUSH PRN (07:00)
[2017-03-15] MEDS ORDERED: Lactated Ringers 1,000 ML IV SCH (07:00)
[2017-03-15] MEDS ORDERED: ceFAZolin 2 GM in Premix Bag 1 BAG IV ONE (07:00)
[2017-03-15] MEDS ORDERED: Sodium Chloride 0.9% 10 ML Syringe FLUSH PRN (07:00)
[2017-03-15] MEDS ORDERED: Ondansetron 4 MG/2 ML SDV ONE (07:33)
[2017-03-15] MEDS ORDERED: Propofol 200 MG/20 ML SDV ONE (07:34)
[2017-03-15] MEDS ORDERED: Midazolam 1 MG/ML 2 ML SDV ONE (07:34)
[2017-03-15] MEDS ORDERED: fentaNYL 100 MCG/2 ML SDV ONE ×3 (07:34→10:23)
--- NOTE | 2017-03-15 07:35 | PCM.PREANE ---
Preanesthetic Assessment - Anesthesia/Transfusion/Family Hx Anesthesia History: Prior Anesthesia Without Reaction Other Type of Anesthesia Reaction Comment: DENIES ANY PROBLEMS WITH ANESTHESIA Family History of Anesthesia Reaction: No Transfusion History: No Prior Transfusion(s) Intubation History: Unknown - Review of Systems General: No Symptoms Pulmonary: No Symptoms Cardiovascular: No Symptoms Gastrointestinal: No Symptoms Neurological: No Symptoms Other: Reports: None - Physical Assessment O2 Sat by Pulse Oximetry: 96 Respiratory Rate: 16 Vital Signs: Last Vital Signs Temp 36.2 C 03/15/17 06:45 Pulse 60 03/15/17 06:45 Resp 16 03/15/17 06:45 BP 121/73 03/15/17 06:45 Pulse Ox 96 03/15/17 06:45 Height: 1.88 m Weight: 102.965 kg ASA Class: 3 Mental Status: Alert & Oriented x3 Airway Class: Mallampati = 2 Dentition: Reports: Normal Dentition Thyro-Mental Finger Breadths: 3 Mouth Opening Finger Breadths: 3 ROM/Head Extension: Full Lungs: Clear to Auscultation, Normal Respiratory Effort Cardiovascular: Regular Rate, Regular Rhythm - Allergies Allergies/Adverse Reactions: Allergies Allergy/AdvReac Type Severity Reaction Status Date / Time No Known Allergies Allergy Verified 03/09/17 12:43 - Blood Blood Available: No - Anesthesia Plan Pre-Op Medication Ordered: None - Acknowledgements Anesthesia Type Planned: General Anesthesia Pt an Appropriate Candidate for the Planned Anesthesia: Yes Alternatives and Risks of Anesthesia Discussed w Pt/Guardian: Yes Pt/Guardian Understands and Agrees with Anesthesia Plan: Yes PreAnesthesia Questionnaire HEENT History: Reports: Hard of Hearing Other HEENT History: wears glasses, has bilateral hearing aides Cardiovascular History: Reports: Afib, High Cholesterol Other Cardiovascular History: A-Fib has been controlled for several years Respiratory History: Reports: Sleep Apnea Other Respiratory History: uses CPAP Gastrointestinal History: Reports: GERD Genitourinary History: Reports: Renal Calculus Musculoskeletal History: Reports: Fracture Other Musculoskeletal History: hx of fx ribs Endocrine/Metabolic History: Reports: Diabetes, Type II, Obesity/BMI 30+ Dermatologic History: Reports: Psoriasis - Infectious Disease History Infectious Disease History: Reports: Measles - Past Surgical History Head Surgeries/Procedures: Reports: None Male Surgical History: Reports: Lithotripsy (ESWL), Renal Calculus, TURP- Transurethral Resection of Prostate, Vasectomy Other Male Surgeries/Procedures: recent Cystoscopy with removal of right ureteral stent and insertion of left uretersl stent Endocrine Surgical History: Reports: Other (See Below) Other Endocrine Surgeries/Procedures: parathyroid nodule removed - SUBSTANCE USE Smoking Status *Q: Former Smoker Second Hand Smoke Exposure: No Days Per Week of Alcohol Use: 0 Recreational Drug Use History: No - HOME MEDS Home Medications: Home Meds Simvastatin [Zocor] 40 mg PO BEDTIME 07/31/13 [History] Digoxin [Lanoxin] 125 mcg PO DAILY #30 tablet 08/03/13 [Rx] Diltiazem [Cardizem CD] 240 mg PO DAILY 01/10/17 [History] Esomeprazole Magnesium [Nexium] 20 mg PO ASDIRECTED 01/10/17 [History] Glimepiride [Amaryl] 2 mg PO BID 01/10/17 [History] metFORMIN HCl [Metformin HCl ER] 500 mg PO DAILY 01/10/17 [History] Nitrofurantoin Macrocrystal [Macrodantin] 100 mg PO BID 03/09/17 [History] - CURRENT (IN HOUSE) MEDS Current Meds: Current Medications Lactated Ringer's (Ringers, Lactated) 1,000 mls @ 100 mls/hr IV ASDIRECTED [facility] Last Admin: 03/15/17 07:04 Dose: 100 mls/hr Sodium Chloride (Saline Flush) 10 ml FLUSH ASDIRECTED PRN PRN Reason: Keep Vein Open Sodium Chloride (Saline Flush) 2.5 ml FLUSH ASDIRECTED PRN PRN Reason: Keep Vein Open Discontinued Medications Cefazolin Sodium/Dextrose 2 gm (/ Premix) 50 mls @ 100 mls/hr IV ONCALL ONE Stop: 03/15/17 07:29
[2017-03-15] MEDS ORDERED: Iopamidol 408 MG/ML 50 ML SDV ONE (07:36)
[2017-03-15] MEDS ORDERED: Lidocaine 2% 5 ML SDV ONE (08:33)
[2017-03-15] MEDS ORDERED: ePHEDrine 50 MG/ML SDV ONE (08:54)
[2017-03-15] MEDS ORDERED: Neostigmine Methylsulfate 1 MG/ML 5 ML Syringe ONE (10:27)
--- NOTE | 2017-03-15 12:54 | OR ---
SURGEON: Matthieu Greer M.D. DATE OF PROCEDURE: 03/15/2017 PREOPERATIVE DIAGNOSIS: Left upper ureteral stone. POSTOPERATIVE DIAGNOSIS: Left renal stone. OPERATION: Ureteroscopy, double-J stent removal, flexible ureteroscopy, and laser lithotripsy for renal stone. DESCRIPTION OF PROCEDURE: The patient was placed in dorsal lithotomy position, prepped and draped in sterile drapes. Cystourethroscopy was done. The lower ureter was dilated to gain access into the stent and was retracted into the ureter. Then the rigid ureteroscope was used to gain access into the ureter and Zero Tip basket was used to grab the stent and take it out. The rigid ureteroscope was then used to gain access all the way up into the kidney alongside the guidewire that had been placed in. The stone could not be visualized and pushed back into the kidney, so another guidewire was put in and the flexible ureteroscope was advanced over one of the guidewires all the way up into the kidney. The stone was visualized and broken up into a multitude of smaller pieces. The two largest pieces were removed. With that done, the procedure was terminated. The guidewire was removed. The ureteroscope was removed and the bladder was emptied. A 16-Georgian Baez catheter was left in for drainage and will be left in overnight. The patient tolerated the procedure well and was moved to the recovery room in good condition. JOELLE / DOMINIQUE /[id number]
[2017-03-15 14:50] VITALS: BP 116/68
--- NOTE | 2017-03-16 11:58 | CR ---
EXAMINATION: Ureteroscopy HISTORY: Lithotripsy COMPARISON: CT dated 03/03/2017 TECHNIQUE: Single image provided FINDINGS/IMPRESSION: Operative control films demonstrate selection of the left renal collecting syste m.
== END 2017-03-15 14:33 | disposition home or self-care (01) ==
LOC: MW.SDS 06:23
PROVIDERS: ATTEND Urology
DX: N20.1 Calculus of ureter (principal); I48.91 Unspecified atrial fibrillation; E78.00 Pure hypercholesterolemia, unspecified; G47.30 Sleep apnea, unspecified; K21.9 Gastro-esophageal reflux disease without esophagitis; E11.9 Type 2 diabetes mellitus without complications; E66.9 Obesity, unspecified; Z68.30 Body mass index [BMI] 30.0-30.9, adult; Z97.4 Presence of external hearing-aid; Z98.52 Vasectomy status; Z79.890 Hormone replacement therapy; Z79.84 Long term (current) use of oral hypoglycemic drugs; Z79.899 Other long term (current) drug therapy
CPT/HCPCS: 52356; 76001; 88300; C1769; J2250; J2405; J3010; J7120; 00910; 76000; J2704; Q9966

== ENCOUNTER 2018-04-25 06:22 | Observation (INO) | payer MEDICARE, OTHER ==
[~2018-04-25 06:22] MED LIST changes: -Iopamidol 408 MG/ML 50 ML SDV ONE; -Sodium Chloride 0.9% 10 ML Syringe FLUSH PRN; -Sodium Chloride 0.9% 2.5 ML Syringe FLUSH PRN; -ceFAZolin 2 GM in Premix Bag 1 BAG IV ONE
[2018-04-25] MEDS ORDERED: Propofol 200 MG/20 ML SDV ONE (06:58)
[2018-04-25] MEDS ORDERED: Midazolam 1 MG/ML 2 ML SDV ONE (06:58)
[2018-04-25] MEDS ORDERED: fentaNYL 250 MCG/5 ML SDV ONE (06:58)
[2018-04-25] MEDS ORDERED: Ondansetron 4 MG/2 ML SDV ONE (07:01)
[2018-04-25] MEDS ORDERED: Succinylcholine 200 MG/10 ML MDV ONE (07:01)
[2018-04-25] MEDS ORDERED: Dexamethasone 4 MG/ML 5 ML MDV ONE (07:01)
[2018-04-25] MEDS ORDERED: Rocuronium 10 MG/ML 10 ML Syringe ONE (07:01)
--- NOTE | 2018-04-25 07:13 | PCM.PREANE ---
Preanesthetic Assessment - Anesthesia/Transfusion/Family Hx Anesthesia History: Prior Anesthesia Without Reaction Other Type of Anesthesia Reaction Comment: DENIES ANY PROBLEMS WITH ANESTHESIA Family History of Anesthesia Reaction: No Transfusion History: No Prior Transfusion(s) Intubation History: Unknown - Review of Systems General: No Symptoms Pulmonary: No Symptoms Cardiovascular: No Symptoms Gastrointestinal: No Symptoms Neurological: No Symptoms Other: Reports: None - Physical Assessment O2 Sat by Pulse Oximetry: 97 Respiratory Rate: 16 Vital Signs: Last Vital Signs Temp 36.3 C 04/25/18 06:58 Pulse 57 L 04/25/18 06:58 Resp 16 04/25/18 06:58 BP 117/65 04/25/18 06:58 Pulse Ox 97 04/25/18 06:58 Height: 1.88 m Weight: 120.202 kg ASA Class: 3 Mental Status: Alert & Oriented x3 Airway Class: Mallampati = 3 Dentition: Reports: Normal Dentition Thyro-Mental Finger Breadths: 3 Mouth Opening Finger Breadths: 3 ROM/Head Extension: Limited/Partial Lungs: Clear to Auscultation, Normal Respiratory Effort Cardiovascular: Regular Rate, Regular Rhythm - Lab Values: Laboratory Last Values POC Glucose 183 mg/dL (60-110) H 04/25/18 06:49 - Allergies Allergies/Adverse Reactions: Allergies Allergy/AdvReac Type Severity Reaction Status Date / Time No Known Allergies Allergy Verified 04/25/18 07:04 - Blood Blood Available: No - Anesthesia Plan Pre-Op Medication Ordered: None - Acknowledgements Anesthesia Type Planned: General Anesthesia Pt an Appropriate Candidate for the Planned Anesthesia: Yes Alternatives and Risks of Anesthesia Discussed w Pt/Guardian: Yes Pt/Guardian Understands and Agrees with Anesthesia Plan: Yes PreAnesthesia Questionnaire HEENT History: Reports: Hard of Hearing Other HEENT History: wears glasses, has bilateral hearing aides Cardiovascular History: Reports: Afib, High Cholesterol Other Cardiovascular History: A-Fib has been controlled for several years, stress test last year normal- indication was ST depression during parathyroidectomy Respiratory History: Reports: Sleep Apnea Other Respiratory History: uses CPAP Gastrointestinal History: Reports: None Genitourinary History: Reports: BPH, Renal Calculus, UTI, Recurrent Musculoskeletal History: Reports: Fracture Other Musculoskeletal History: hx of cracked ribs Endocrine/Metabolic History: Reports: Diabetes, Type II (A1c around 8, glucose 183 this morning), Obesity/BMI 30+, Other (See Below) (s/p parathyroidectomy) Oncologic (Cancer) History: Reports: Basal Cell Carcinoma Other Oncologic History: basal cell removed from chin Dermatologic History: Reports: Psoriasis - Infectious Disease History Infectious Disease History: Reports: Measles - Past Surgical History Head Surgeries/Procedures: Reports: None Male Surgical History: Reports: Lithotripsy (ESWL), Renal Calculus, TURP- Transurethral Resection of Prostate (3-4 years ago), Vasectomy Other Male Surgeries/Procedures: hx of Cystoscopies with ureteral stent placement & later removal of stents-barrett Endocrine Surgical History: Reports: Other (See Below) Other Endocrine Surgeries/Procedures: parathyroid surgery x2 with nodule removal - SUBSTANCE USE Smoking Status *Q: Former Smoker Tobacco Use Within Last Twelve Months: No Recreational Drug Use History: No - HOME MEDS Home Medications: Home Meds Simvastatin [Zocor] 40 mg PO BEDTIME 07/31/13 [History] Digoxin [Lanoxin] 125 mcg PO DAILY #30 tablet 08/03/13 [Rx] Diltiazem [Cardizem CD] 240 mg PO DAILY 01/10/17 [History] Glimepiride [Amaryl] 2 mg PO BID 01/10/17 [History] metFORMIN HCl [Metformin ER Osmotic] 500 mg PO DAILY 01/10/17 [History] Ertapenem Sodium [Ertapenem] 1 dose IV ASDIRECTED 04/20/18 [History] Rivaroxaban [Xarelto] 20 mg PO DAILY 04/20/18 [History] metFORMIN HCl [Metformin ER Gastric] 1,000 mg PO BEDTIME 04/20/18 [History] - CURRENT (IN HOUSE) MEDS Current Meds: Current Medications Lactated Ringer's (Ringers, Lactated) 1,000 mls @ 100 mls/hr IV ASDIRECTED [facility] Last Admin: 04/25/18 07:07 Dose: 100 mls/hr Amikacin Sulfate 400 mg/ (Sodium Chloride) 101.6 mls @ 101.6 mls/hr IV ONCALL ONE Stop: 04/25/18 08:29 Discontinued Medications Dexamethasone (Dexamethasone) Confirm Administered Dose 20 mg .ROUTE .STK-MED ONE Stop: 04/25/18 07:02 Fentanyl (Sublimaze) Confirm Administered Dose 250 mcg .ROUTE .STK-MED ONE Stop: 04/25/18 06:59 Lidocaine HCl (Xylocaine-Mpf 1%) Confirm Administered Dose 5 mls @ as directed .ROUTE .[facility]-MED ONE Stop: 04/25/18 07:01 Midazolam HCl (Versed 1 Mg/Ml) Confirm Administered Dose 2 mg .ROUTE .ST-MED ONE Stop: 04/25/18 06:59 Ondansetron HCl (Zofran) Confirm Administered Dose 4 mg .ROUTE .[facility]-MED ONE Stop: 04/25/18 07:02 Propofol (Diprivan 20 Ml) Confirm Administered Dose 200 mg .ROUTE .ST-MED ONE Stop: 04/25/18 06:59 Rocuronium [place] (Zemuron) Confirm Administered Dose 100 mg .ROUTE .[facility]-MED ONE Stop: 04/25/18 07:02 Succinylcholine Chloride (Quelicin) Confirm Administered Dose 200 mg .ROUTE .[facility] -MED ONE Stop: 04/25/18 07:02
[2018-04-25] MEDS ORDERED: Phenylephrine 1% 10 MG/ML SDV ONE ×2 (07:26→09:17)
[2018-04-25] MEDS ORDERED: Glycopyrrolate 0.2 MG/ML SDV ONE (08:09)
[2018-04-25] MEDS ORDERED: fentaNYL 100 MCG/2 ML SDV IVPUSH PRN (08:46)
[2018-04-25] MEDS ORDERED: Belladonna Alkaloids/Opium 16.2-30 MG Supp RECTAL PRN (10:23)
[2018-04-25] MEDS ORDERED: Lactated Ringers 1,000 ML IV SCH (10:30)
--- NOTE | 2018-04-25 12:33 | OR ---
SURGEON: Matthieu Greer M.D. DATE OF PROCEDURE: 04/25/2018 PREOPERATIVE DIAGNOSIS: Persistent urinary tract infection secondary to prostate infection. POSTOPERATIVE DIAGNOSIS: Persistent urinary tract infection secondary to prostate infection. OPERATION: TURP. DESCRIPTION OF PROCEDURE: The patient was given general anesthesia. He was placed in dorsal lithotomy position. Prepped and draped in sterile drapes. A 28-[place] continuous-flow resectoscope was introduced into the bladder without difficulty. The remainder of the prostate tissue was completely resected down to the capsule, possibly with minimal amount of residual BPH at the apex. In the process, uncovered what looked like an abscess cavity on the floor of the prostatic urethra. The prostate chips were removed. The ureteral orifices were intact. The area of the external sphincter was intact. A 22 three-way Baez catheter with 40 mL in the balloon was left in the bladder, connected to TUR drip. The patient tolerated the procedure well and was moved to recovery room in good condition. Estimated blood loss was 300 mL. JOELLE / DOMINIQUE /[id number]
[2018-04-25] MEDS ORDERED: Acetaminophen 325 MG Tab PO PRN (15:03)
[2018-04-25] MEDS: Bacitracin Oint 28.35 GM Tube TOP SCH ×2 (15:35→22:00)
[2018-04-25] MEDS ORDERED: Diphtheria,Pertussis(Acell),Tetanus Vaccine 0.5 ML Syringe IM ONE (18:00)
[2018-04-25] MEDS: Simvastatin 40 MG Tab PO SCH (20:05)
[2018-04-25] MEDS: Glimepiride 2 MG Tab PO SCH (20:06)
[2018-04-25] MEDS ORDERED: metFORMIN 500 MG Tab.ER PO SCH (21:00)
[2018-04-25] MEDS: Docusate Sodium 100 MG Cap PO SCH (22:12)
[2018-04-26] MEDS: Bacitracin Oint 28.35 GM Tube TOP SCH ×3 (06:15→21:08)
--- NOTE | 2018-04-26 07:29 | PCM48HPAN ---
Post Anesthesia Note - EVALUATION WITHIN 48HRS OF ANESTHETIC Vital Signs in Normal Range: Yes Patient Participated in Evaluation: Yes Respiratory Function Stable: Yes Airway Patent: Yes Cardiovascular Function Stable: Yes Hydration Status Stable: Yes Pain Control Satisfactory: Yes Nausea and Vomiting Control Satisfactory: Yes Mental Status Recovered: Yes Resp Rate: 18 - COMMENTS/OBSERVATIONS Free Text/Narrative:: Denies any pain and states he is "doing great"
[2018-04-26] MEDS: Docusate Sodium 100 MG Cap PO SCH ×2 (08:33→21:07)
[2018-04-26] MEDS: Diltiazem 120 MG Cap.CD PO SCH (08:34)
[2018-04-26] MEDS: Digoxin 250 MCG Tab PO SCH (08:36)
[2018-04-26] MEDS: Glimepiride 2 MG Tab PO SCH ×2 (08:36→21:11)
[2018-04-26] MEDS ORDERED: metFORMIN 500 MG Tab.ER PO SCH (09:00)
[2018-04-26] MEDS ORDERED: metFORMIN 500 MG Tab.ER ONE (09:27)
[2018-04-26] MEDS: Furosemide 20 MG Tab PO SCH (14:04)
[2018-04-26] MEDS: metFORMIN 500 MG Tab.ER PO SCH (17:23)
[2018-04-26] MEDS: Simvastatin 40 MG Tab PO SCH (21:07)
[2018-04-27] MEDS: Bacitracin Oint 28.35 GM Tube TOP SCH ×2 (06:27→14:03)
[2018-04-27] MEDS: metFORMIN 500 MG Tab.ER PO SCH ×2 (07:52→16:09)
[2018-04-27] MEDS: Furosemide 20 MG Tab PO SCH ×2 (07:53→14:02)
[2018-04-27] MEDS: Glimepiride 2 MG Tab PO SCH (09:40)
[2018-04-27] MEDS: Diltiazem 120 MG Cap.CD PO SCH (09:40)
[2018-04-27] MEDS: Docusate Sodium 100 MG Cap PO SCH (09:40)
[2018-04-27] MEDS: Digoxin 250 MCG Tab PO SCH (09:43)
[2018-04-27 16:25] VITALS: BP 114/58
[2018-04-27] MEDS ORDERED: Diphtheria,Pertussis(Acell),Tetanus Vaccine 0.5 ML Syringe IM ONE (17:45)
--- NOTE | 2018-04-27 18:18 | DISCH ---
DATE OF DISCHARGE: PRIMARY CARE PHYSICIAN: None PCP A 72-year-old who was admitted to the hospital and had a TURP for recurrent urinary tract infection, this is second-stage TURP. The study of his upper urinary tract yielded no significant findings to suggest that the infection was coming from anything other than the prostate. He was kept on very few antibiotics that would work for his Morganella UTI that had led in the past to sepsis. He was admitted one day prior to surgery for IV antibiotics, then had the surgery day before yesterday, did well, remained stable postop. The catheter was taken out earlier this morning. Second postop day, he is passing his urine without difficulty and the urine is reasonably clear. He is sent home today. He is not sent home on any antibiotics. He will have a urine culture in 2 weeks. Pathology on remote tissue showed 19 g of benign prostate tissue with evidence of chronic prostatitis. JOELLE / DOMINIQUE /[id number]
== END 2018-04-27 19:10 | disposition home or self-care (01) ==
LOC: MW.SDS 06:22 → MW.MS 10:32 → MW.SDS 10:59 → MW.MS 04-26 08:22
PROVIDERS: ADMIT Urology; ATTEND Urology
DX: N41.1 Chronic prostatitis (principal); N40.0 Benign prostatic hyperplasia without lower urinary tract symptoms; N39.0 Urinary tract infection, site not specified; B96.89 Other specified bacterial agents as the cause of diseases classified elsewhere; I48.0 Paroxysmal atrial fibrillation; E11.9 Type 2 diabetes mellitus without complications; E21.0 Primary hyperparathyroidism; E78.00 Pure hypercholesterolemia, unspecified; G47.33 Obstructive sleep apnea (adult) (pediatric); E66.9 Obesity, unspecified; Z68.34 Body mass index [BMI] 34.0-34.9, adult; Z99.89 Dependence on other enabling machines and devices; Z23 Encounter for immunization; Z87.891 Personal history of nicotine dependence; Z79.01 Long term (current) use of anticoagulants; Z79.84 Long term (current) use of oral hypoglycemic drugs; Z79.899 Other long term (current) drug therapy
CPT/HCPCS: 36415; 52630; 80051; 82962; 84132; 84295; 90471; 90662; 90715; A9270; G0378; J0278; J0330; J1100; J2250; J2370; J2405; J2704; J3010; J3490; J7030; J7060; J7120; 00914; 88305